=== PATIENT | male | born 1940 | race Caucasian/White ===

== ENCOUNTER 2018-07-28 08:33 | Day surgery (SDC) | payer MEDICARE, SELFPAY ==
[2018-07-17 09:49] VITALS: BMI 30.9
[2018-07-28] VITALS (8 sets, daily range): BP systolic 127–160; BP diastolic 3–106; PULSE 77–86; RESP 10–17; TEMP 36.1–36.9; O2SAT 94–96; BMI 30.9
[2018-07-28] MEDS: LACTATED RINGERS 1,000 ML 100 ML IV (09:06)
[2018-07-28] MEDS: CLINDAMYCIN 900 MG/50 ML PIGGYBACK 50 MG IV (09:07)
--- NOTE | 2018-07-28 09:10 | PM.PREOP ---
Pre-operative Note Interval Note Pre-op Check: Yes History & Physical Reviewed by Physician and Yes Exam Performed Changes: No H&P completed within 30 days and has changed as indicated here:: Patient seen and examined in the preoperative area today. Surgical site marked accordingly. No changes from his history and physical examination dictated July 08, 2018 and placed on the chart. Proceed with left inguinal hernia repair with mesh today as planned.
--- NOTE | 2018-07-28 09:33 | SUR.OPER ---
Supine on padded OR bed, head on pillow, arms secured on padded arm boards at <90 degrees abduction, legs uncrossed, safety belt at thigh, tape over blanket over lower legs.
[2018-07-28] MEDS: BUPIVACAINE 0.5% (PF) VIAL 30 ML INJ (09:44)
[2018-07-28] MEDS: LIDOCAINE 1% W/EPI INJ 20 ML INJ (09:46)
--- NOTE | 2018-07-28 11:09 | PM.OP.1 ---
Operative Date/Time/Diagnoses Date of procedure: 07/28/18 Time of procedure: 11:09 Pre-op diagnosis: Symptomatic left inguinal hernia Post-op diagnosis: other (Symptomatic indirect sliding left inguinal hernia containing sigmoid colon and preperitoneal fat) Procedure & Clinicians Procedure: Open left inguinal hernia repair with mesh Same procedure as scheduled: Yes Indications: 78-year-old male who presented with large left inguinal mass causing significant pain and discomfort. Examination and evaluation were consistent with large reducible left inguinal hernia. Repair was recommended. Surgeon: Jasper Mcneal Click Yes if Unassisted: Yes Anesthesia Type: General Operative Notes Findings: 1. Large sliding indirect left inguinal hernia containing loop of sigmoid colon and preperitoneal fat 2. Colon was completely viable without evidence of ischemia or other abnormalities except few diverticula 3. No evidence of direct inguinal hernia 4. Testicles in normal descended position bilaterally at conclusion of the case Closure Type: primary Specimen(s): none sent Implants & Drains: Large Pro Loop polypropylene mesh plug and onlay patch left inguinal canal Applied: other (Mesh as above) Estimated Blood Loss (mL): 10 Blood products transfused: none Procedure in detail: After obtaining informed consent the patient was brought to the operating room and placed supine on the table. After satisfactory induction of anesthesia the abdomen, groin, and genitalia were prepped and draped in usual sterile fashion. SCOAP time out was performed per standard protocol. Left inguinal incision transversally designed over the distal aspect of the left inguinal canal was created with 10 scalpel blade for distance of approximately 4 cm after achieving local anesthesia. Local anesthetic consisted of a one-to-one mixture 1% lidocaine with 1 :100,000 epinephrine and 0.5% plain Marcaine. Bovie was used to achieve hemostasis and carried the dissection down through the subcutaneous tissue to the external oblique fascia. Fascia was divided in the direction of its fibers with 15 scalpel blade followed by Metzenbaum scissors to the level of the external inguinal ring. The inguinal ring and fascia were quite attenuated given the presence of a relatively large hernia sac. Blunt dissection allowed for the hernia sac and spermatic cord to be encircled with the surgeon's fingers followed by Chrissie drain. Blunt dissection also developed the tissue planes along the ileal pubic tract laterally, conjoined tendon anteriorly, and rectus fascia medially. Meticulous blunt dissection using DeBakey forceps was employed to skeletonize the spermatic cord and the hernia sac was thereby from the cord structures. Great care was taken to avoid injury to the spermatic cord vessels and vas deferens. However, the ileal inguinal nerve was quite attenuated and densely adherent to the hernia sac. I therefore elected to sacrifice the ilioinguinal nerve. Infected dissection was somewhat difficult given the significant adhesions between the chronic hernia sac and spermatic cord. Hemostasis was achieved with the Bovie. [place] of the hernia sac was then secured between hemostats once it had been completely isolated from surrounding connective tissue. Hernia sac was entered under direct visualization bluntly with Metzenbaum scissors. Sac was then completely dissected away and discarded. Findings are as above. The sigmoid colon was viable and great care was taken to avoid injury to the structure. Adhesions were taken down so that the bowel could be adequately reduced back into the abdominal cavity. Preperitoneal fat and hernia was also divided with the Bovie and discarded. Hemostasis was verified. Spermatic cord was retracted laterally using the Chrissie drain and mesh was brought onto the operative field. Plug was placed into the attenuated internal inguinal ring and secured with interrupted 2 0 Vicryl suture to surrounding connective tissue to prevent migration. Onlay patch was then placed into the inguinal canal and secured over the floor of the canal using interrupted 0 Tycron suture. Anteriorly the mesh was secured to the conjoined tendon while laterally was secured to the ileal pubic tract. Medially mesh was secured to the rectus fascia. Tails of the mesh were brought around the spermatic cord and placed deep to the external oblique fascia with a were secured with a single 0 Tycron suture. Meticulous examination showed that there was no strangulation of the cord by the mesh. The defect admitted the tip of the surgeon's finger adjacent to the cord. Wound was irrigated with copious amounts of sterile saline solution and hemostasis was verified. Spermatic cord was placed back in its usual anatomic position. External oblique fascia was closed over the cord using running 3 0 Vicryl suture. Subcutaneous tissue was closed with interrupted 3 0 Vicryl suture as well. Skin was closed in a running subcuticular fashion with 4 0 Monocryl suture. Dermal adhesive was applied to the skin. Testicles were noted to be in normal descended position in the scrotum bilaterally at the conclusion of the case. Anesthesia was reversed the patient extubated in the operating room. He was taken recovery in stable condition. Complications: none Condition: stable Disposition: PACU Plan for aftercare: 1. Discharge home 2. Follow up in surgery Clinic in 2 weeks
[2018-07-28] MEDS: fentaNYL 100 MCG/2 ML INJ 50 MCG IV (11:18)
--- NOTE | 2018-07-28 11:20 | SUR.PHASEI ---
pt c/o 4/10 pain to l groin area, medicated with fentanyl.
--- NOTE | 2018-07-28 11:29 | SUR.PHASEI ---
dr estrada made aware of elevated bp, no new orders, instructed pt to make log and follow bp trends at home and if still over 140/80 to follow up w/ pcp. will also explain to .
[2018-07-28] MEDS: OXYCODONE IR 5 MG TABLET PO (11:33)
== END 2018-07-28 12:02 | disposition home or self-care (01) ==
PROVIDERS: PCP Physician Assistant; Visit Provider Surgery
PROC: (CPT 49525; principal; 2018-07-28 10:45)
DX: K40.30 Unilateral inguinal hernia, with obstruction, without gangrene, not specified as recurrent (principal)
CPT/HCPCS: 49525; C1781; J2250; J3010

== ENCOUNTER → 2019-05-05 10:56 | Outpatient (CLI) | payer MEDICARE, SELFPAY ==
--- NOTE | 2019-05-05 | DI.RAD.S_ITS ---
PROCEDURE: XR CHEST 2V INDICATIONS: COUGH, RESPIRATORY CRACKLES AT BOTH LUNG BASES TECHNIQUE: 2 views of the chest were acquired. COMPARISON: None. FINDINGS: Surgical changes and devices: None. Lungs and pleura: No acute consolidation. Scattered subsegmental atelectasis and/or scarring. . No pleural effusions or pneumothorax. Mediastinum: Mediastinal contours are normal. Heart size is normal. Bones and chest wall: No suspicious bony abnormalities. Soft tissues appear unremarkable. IMPRESSION: No acute disease. Scattered scarring/atelectasis. Dictated by: Jeremy Aj M.D. on 05/05/2019 at 14:10 Approved by: Jeremy Aj M.D. on 05/05/2019 at 14:17
== END ==
PROVIDERS: PCP Physician Assistant; Visit Provider Physician Assistant
DX: R05 Cough (principal); R09.89 Other specified symptoms and signs involving the circulatory and respiratory systems
CPT/HCPCS: 71046

== ENCOUNTER → 2020-05-23 19:29 | Outpatient (ROUT) | payer MEDICARE, SELFPAY ==
[2020-05-23 20:05] LABS: Add Manual Diff / Slide Review NO; Basophils Absolute Auto 0 /uL (0-100); Basophils Percent Auto 0.6 % (0-2); Eosinophils Absolute Auto 100 /uL (0-450); Eosinophils Percent Auto 2.4 % (2-4); Hematocrit 45.2 % (41-53); Hemoglobin 15.4 g/dL (13.5-17.5); Lymphocytes Absolute Auto 1500 /uL (1100-4500); Lymphocytes Percent Auto 26.6 % (25-40); Mean Corpuscular HGB Conc 34.1 % (30-36); Mean Corpuscular Hemoglobin 33.3 PG (26-34); Mean Corpuscular Volume 97.5 fL (80-100); Monocytes Absolute Auto 500 /uL (0-900); Monocytes Percent Auto 8.6 % (3-14); Neutrophils Absolute Auto 3400 /uL (1500-7000); Neutrophils Percent Auto 61.8 % (50-75); Platelet Count 121 X10^3/uL (150-400); Red Blood Cell Count 4.64 X10^6/uL (4.5-5.9); Red Cell Distribution Width 14.4 % (11.6-14.8); White Blood Cell Count 5.6 X10^3/uL (4.5-11.0)
[2020-05-23 20:11] LABS: Alanine Aminotransferase 23 IU/L (<50); Albumin 4.2 g/dL (3.5-5.0); Albumin Globulin Ratio 1.6 (1.0-2.8); Alkaline Phosphatase 66 U/L (38-126); Aspartate Aminotransferase 32 IU/L (17-59); BUN Creatinine Ratio 22.5 (6-22); Bilirubin Total 0.6 mg/dL (0.2-1.3); Blood Urea Nitrogen 23 mg/dL (9-20); Calcium 9.5 mg/dL (8.4-10.2); Carbon Dioxide 27 mmol/L (22-32); Chloride 104 mmol/L (98-107); Cholesterol 187 mg/dL (140-199); Estimated Glomerular Filt Rate > 60.0 mL/min (>60); Globulin 2.6 g/dL (1.7-4.1); Glucose 124 mg/dL (80-110); HDL Cholesterol 55 mg/dL (40-60); HEMOLYSIS < 15 (0-50); LDL Cholesterol Calculated 68 mg/dL (<100); Potassium 4.1 mmol/L (3.4-5.1); Sodium 139 mmol/L (137-145); Total Protein 6.8 g/dL (6.3-8.2); Triglycerides 322 mg/dL (35-150)
[2020-05-23 20:38] LABS: TSH w/ Reflex to FT4 2.74 uIU/mL (0.47-4.68)
== END ==
PROVIDERS: PCP Physician Assistant; Visit Provider Physician Assistant
DX: E03.9 Hypothyroidism, unspecified (principal); I10 Essential (primary) hypertension; E78.00 Pure hypercholesterolemia, unspecified
CPT/HCPCS: 80053; 80061; 84443; 85025

== ENCOUNTER → 2020-10-27 14:53 | Outpatient (CLI) | payer MEDICARE, SELFPAY ==
[2020-10-27] MEDS: COVID-19 VACC #1, MRNA(MOD) 100 MCG/0.5 ML VIAL IM (15:06)
== END ==
PROVIDERS: Family Provider Internal Medicine; PCP Physician Assistant; Visit Provider Internal Medicine
DX: Z23 Encounter for immunization (principal)
CPT/HCPCS: 0011A; 91301

== ENCOUNTER → 2020-11-21 09:57 | Outpatient (CLI) | payer MEDICARE, SELFPAY ==
[2020-11-21 10:49] LABS: Add Manual Diff / Slide Review NO; Basophils Absolute Auto 0 /uL (0-100); Basophils Percent Auto 0.8 % (0-2); Eosinophils Absolute Auto 200 /uL (0-450); Eosinophils Percent Auto 4.2 % (2-4); Hematocrit 47.9 % (41-53); Hemoglobin 16.1 g/dL (13.5-17.5); Lymphocytes Absolute Auto 1400 /uL (1100-4500); Mean Corpuscular HGB Conc 33.6 % (30-36); Mean Corpuscular Hemoglobin 32.5 PG (26-34); Mean Corpuscular Volume 96.8 fL (80-100); Monocytes Absolute Auto 500 /uL (0-900); Monocytes Percent Auto 9.5 % (3-14); Neutrophils Absolute Auto 2800 /uL (1500-7000); Neutrophils Percent Auto 56.5 % (50-75); Platelet Count 117 X10^3/uL (150-400); Red Blood Cell Count 4.95 X10^6/uL (4.5-5.9); Red Cell Distribution Width 13.9 % (11.6-14.8)
[2020-11-21 11:06] LABS: HEMOLYSIS < 15 (0-50); Potassium 4.1 mmol/L (3.4-5.1)
[2020-11-21 11:07] LABS: Alanine Aminotransferase 29 IU/L (<50); Albumin 4.3 g/dL (3.5-5.0); Albumin Globulin Ratio 1.3 (1.0-2.8); Alkaline Phosphatase 67 U/L (38-126); Aspartate Aminotransferase 35 IU/L (17-59); BUN Creatinine Ratio 24.2 (6-22); Bilirubin Total 0.6 mg/dL (0.2-1.3); Blood Urea Nitrogen 23 mg/dL (9-20); Calcium 9.9 mg/dL (8.4-10.2); Carbon Dioxide 32 mmol/L (22-32); Chloride 105 mmol/L (98-107); Cholesterol 209 mg/dL (140-199); Estimated Glomerular Filt Rate > 60.0 mL/min (>60); Globulin 3.2 g/dL (1.7-4.1); Glucose 102 mg/dL (80-110); HDL Cholesterol 57 mg/dL (40-60); LDL Cholesterol Calculated 129 mg/dL (<100); Sodium 141 mmol/L (137-145); Total Protein 7.5 g/dL (6.3-8.2); Triglycerides 113 mg/dL (35-150)
[2020-11-21 11:35] LABS: TSH w/ Reflex to FT4 2.95 uIU/mL (0.47-4.68)
== END ==
PROVIDERS: Family Provider Internal Medicine; PCP Physician Assistant; Referring Provider Physician Assistant; Visit Provider Physician Assistant
DX: E03.9 Hypothyroidism, unspecified (principal); I10 Essential (primary) hypertension; E78.00 Pure hypercholesterolemia, unspecified
CPT/HCPCS: 36415; 80053; 80061; 84443; 85025

== ENCOUNTER → 2020-11-24 14:53 | Outpatient (CLI) | payer MEDICARE, SELFPAY ==
[2020-11-24] MEDS: COVID-19 VACC #2, MRNA(MOD) 100 MCG/0.5 ML VIAL IM (15:08)
== END ==
PROVIDERS: Family Provider Internal Medicine; PCP Physician Assistant; Visit Provider Internal Medicine
DX: Z23 Encounter for immunization (principal)
CPT/HCPCS: 0012A; 91301

== ENCOUNTER 2023-03-06 12:30 | Outpatient (RCR) | payer MEDICARE, SELFPAY | END 2023-03-06 13:39 | LOC: CAR 12:30 | PROVIDERS: Family Provider Internal Medicine; PCP Physician Assistant; Referring Provider Thoracic Surgery (Cardiothoracic Vascular Surgery); Visit Provider Thoracic Surgery (Cardiothoracic Vascular Surgery) | DX: Z95.1 Presence of aortocoronary bypass graft (principal) | CPT/HCPCS: 93798 ==

== ENCOUNTER → 2024-11-26 10:15 | Outpatient (CLI) | payer MEDICARE, SELFPAY ==
[2024-11-26 12:04] LABS: Alanine Aminotransferase 27 IU/L (<50); Albumin 4.5 g/dL (3.5-5.0); Albumin Globulin Ratio 1.8 (1.0-2.8); Alkaline Phosphatase 50 U/L (38-126); Aspartate Aminotransferase 35 IU/L (17-59); BUN Creatinine Ratio 17.1 (6-22); Bilirubin Total 0.9 mg/dL (0.2-1.3); Blood Urea Nitrogen 18 mg/dL (9-20); Calcium 9.9 mg/dL (8.4-10.2); Carbon Dioxide 29 mmol/L (22-32); Chloride 104 mmol/L (98-107); Cholesterol 189 mg/dL (140-199); Estimated Glomerular Filt Rate > 60 mL/min (>60); Globulin 2.5 g/dL (1.7-4.1); Glucose 98 mg/dL (80-110); HDL Cholesterol 49 mg/dL (40-60); HEMOLYSIS < 15 (0-50); LDL Cholesterol Calculated 107 mg/dL (<100); Potassium 4.9 mmol/L (3.4-5.1); Sodium 141 mmol/L (137-145); Triglycerides 166 mg/dL (35-150)
[2024-11-26 12:33] LABS: TSH w/ Reflex to FT4 3.14 uIU/mL (0.47-4.68)
[2024-11-26 17:39] LABS: Hemoglobin A1C% w Est Avg Glu 5.7 % (4.0-6.0)
== END ==
PROVIDERS: Family Provider Internal Medicine; PCP Family Medicine; Referring Provider Family Medicine; Visit Provider Family Medicine
DX: Z13.1 Encounter for screening for diabetes mellitus (principal); E03.9 Hypothyroidism, unspecified; I10 Essential (primary) hypertension; I25.810 Atherosclerosis of coronary artery bypass graft(s) without angina pectoris; E78.5 Hyperlipidemia, unspecified
CPT/HCPCS: 36415; 80053; 80061; 83036; 84443

== ENCOUNTER → 2024-11-29 10:41 | Outpatient (CLI) | payer MEDICARE, SELFPAY ==
[2024-11-30 12:12] LABS: Fecal Immunochemical Test Negative (Negative)
== END ==
PROVIDERS: Family Provider Internal Medicine; PCP Family Medicine; Referring Provider Family Medicine; Visit Provider Family Medicine
DX: Z12.11 Encounter for screening for malignant neoplasm of colon (principal); Z12.12 Encounter for screening for malignant neoplasm of rectum
CPT/HCPCS: 82274